=== PATIENT | female | born 1955 | race Caucasian/White ===

== ENCOUNTER 2020-05-07 15:50 | Emergency (ER) | payer MEDICARE ==
[2020-05-07 16:47] LABS: BASOPHIL 0.5 % (0-2); EOSINOPHIL 0.1 % (0-7); HCT 40.1 % (37.0-47.0); HGB 13.1 g/dl (12.5-16.0); LYMPHOCYTE 11.9 % (15-48); MCH 31.3 pg (25.0-31.0); MCHC 32.7 g/dL (32.0-36.0); MCV 95.7 fL (78.0-100.0); MONOCYTE 4.8 % (0-12); MPV 9.1 fL (6.0-9.5); NEUTROPHIL 82.4 % (41-80); NRBC 0; PLT 372 K/uL (150-400); RBC 4.19 M/uL (4.20-5.40); RDW 11.6 % (11.5-14.0); WBC 12.8 K/uL (4.0-10.5)
[2020-05-07 16:58] LABS: ALBUMIN 3.7 g/dL (3.4-5.0); BILIRUBIN - TOTAL 0.3 mg/dL (0.2-1.0); CREATININE 0.59 mg/dL (0.51-0.95); GLOBULIN (CALCULATION) 4.5 g/dL; POTASSIUM 4.1 mmol/L (3.5-5.1); TOTAL PROTEIN 8.2 g/dL (6.4-8.2)
== END 2020-05-07 23:08 | disposition other institution (70) ==
LOC: FER 15:50
PROVIDERS: Emergency Medicine
DX: C34.11 Malignant neoplasm of upper lobe, right bronchus or lung (principal); C79.31 Secondary malignant neoplasm of brain; I10 Essential (primary) hypertension; J44.9 Chronic obstructive pulmonary disease, unspecified; F17.200 Nicotine dependence, unspecified, uncomplicated; Z88.0 Allergy status to penicillin; Z88.5 Allergy status to narcotic agent; Z88.1 Allergy status to other antibiotic agents; Z20.822 Contact with and (suspected) exposure to COVID-19
CPT/HCPCS: 36415; 70470; 70491; 71046; 71250; 80053; 85025; 93005; J1100; J2270; J2405; J2550; Q9967; U0002